=== PATIENT | male | born 1965 | race Caucasian/White ===

== ENCOUNTER 2017-10-19 12:56 | Emergency (ER) | payer MEDICAID ==
[2017-10-19] MEDS: MECLIZINE 12.5 MG TAB PO (13:31)
[2017-10-19 13:51] LABS: ADD MAN DIFF? NO
[2017-10-19 13:56] LABS: WHITE BLOOD COUNT 5.9 10^3/ul (4.8-10.8)
[2017-10-19 13:56] LABS: BASOPHILS % 0.3 % (0.0-2.0); EOSINOPHILS # 0.1 10^3/ul (0.0-0.5); EOSINOPHILS % 1.7 % (0.0-7.0); HEMATOCRIT 41.7 % (42.0-52.0); HEMOGLOBIN 13.6 g/dl (14.0-18.0); LYMPHOCYTES # 1.6 10^3/ul (0.8-2.9); LYMPHOCYTES % 27.4 % (15.0-51.0); MEAN CORPUSCULAR HEMOGLOBIN 28.3 pg (29.0-33.0); MEAN CORPUSCULAR HGB CONC 32.6 g/dl (32.0-37.0); MEAN CORPUSCULAR VOLUME 86.9 fl (82.0-101.0); MONOCYTE # 0.6 10^3/ul (0.3-0.9); MONOCYTES % 10.6 % (0.0-11.0); NEUTROPHIL # 3.5 10^3/ul (1.6-7.5); NEUTROPHILS % 59.7 % (39.0-77.0); PLATELET COUNT 240 10^3/UL (140-415); RED CELL DISTRIBUTION WIDTH 12.8 % (11.5-14.5)
[2017-10-19 14:13] LABS: CARBON DIOXIDE 31 mmol/L (21-31); CHLORIDE 105 mmol/L (97-110); SODIUM 144 mmol/L (135-144)
[2017-10-19 14:14] LABS: ALANINE AMINOTRANSFERASE 36 IU/L (13-69); ALBUMIN 4.2 g/dl (3.3-4.9); ALKALINE PHOSPHATASE 100 IU/L (42-121); ANION GAP 12 (8-16); ASPARTATE AMINO TRANSFERASE 25 IU/L (15-46); BILIRUBIN,INDIRECT 0.4 mg/dl (0-1.1); BILIRUBIN,TOTAL 0.4 mg/dl (0.2-1.3); BLOOD UREA NITROGEN 10 mg/dl (7-20); CALCIUM 9.8 mg/dl (8.4-10.2); CREATININE 0.67 mg/dl (0.61-1.24); GLUCOSE 128 mg/dl (70-220); TOTAL PROTEIN 7.7 g/dl (6.1-8.1)
== END 2017-10-19 15:02 | disposition home or self-care (01) ==
LOC: FTE 12:56
DX: R42 Dizziness and giddiness (principal); R51 Headache; Z79.82 Long term (current) use of aspirin
CPT/HCPCS: 36415; 70450; 80053; 85025; 99285-25

== ENCOUNTER 2018-05-24 13:16 | Inpatient (IN) | payer MEDICAID ==
[2018-05-24] MEDS: SOD CHLORIDE 0.9% 1,000 ML IV ×2 (17:12→22:37)
[2018-05-24 17:21] LABS: WHITE BLOOD COUNT 13.5 10^3/ul (4.8-10.8)
[2018-05-24 17:21] LABS: ABNORMAL IP MESSAGE 1; HEMATOCRIT 18.8 % (42.0-52.0); MEAN CORPUSCULAR HEMOGLOBIN 29.8 pg (29.0-33.0); MEAN CORPUSCULAR HGB CONC 32.4 g/dl (32.0-37.0); MEAN CORPUSCULAR VOLUME 91.7 fl (82.0-101.0); MEAN PLATELET VOLUME 9.9 fl (7.4-10.4); PLATELET COUNT 310 10^3/UL (140-415); POSITIVE DIFF @See below; RED BLOOD COUNT 2.05 10^6/ul (4.70-6.10); RED CELL DISTRIBUTION WIDTH 12.8 % (11.5-14.5)
[2018-05-24 17:24] LABS: ADD MAN DIFF? YES; ADD UMIC NO; HEMOGLOBIN 6.1 g/dl (14.0-18.0); UR ASCORBIC ACID NEGATIVE (NEGATIVE); UR BILIRUBIN (Dip) NEGATIVE (NEGATIVE); UR BLOOD (Dip) NEGATIVE (NEGATIVE); UR CLARITY CLEAR (CLEAR); UR COLOR YELLOW (YELLOW); UR GLUCOSE (Dip) 2+ mg/dL (NEGATIVE); UR KETONES (Dip) NEGATIVE (NEGATIVE); UR LEUKOCYTE ESTERASE (Dip) NEGATIVE Leu/ul (NEGATIVE); UR NITRITE (Dip) NEGATIVE (NEGATIVE); UR SPECIFIC GRAVITY (Dip) 1.023 (1.003-1.030); UR TOTAL PROTEIN (Dip) NEGATIVE (NEGATIVE); UR UROBILINOGEN (Dip) NEGATIVE (NEGATIVE)
[2018-05-24 17:25] LABS: PATH REVIEW? YES
[2018-05-24] MEDS: SOD CHLORIDE 0.9% 0 ML IV (17:38)
[2018-05-24 17:39] LABS: INR 0.89; PROTIME 12.2 Sec (11.9-14.9)
[2018-05-24 17:40] LABS: PARTIAL THROMBOPLASTIN TIME 28.7 Sec (23.0-35.0)
[2018-05-24 17:45] LABS: ALANINE AMINOTRANSFERASE 23 IU/L (13-69); ALBUMIN 3.5 g/dl (3.3-4.9); ALBUMIN/GLOBULIN RATIO 1.34; ALKALINE PHOSPHATASE 77 IU/L (42-121); ANION GAP 8 (5-13); ASPARTATE AMINO TRANSFERASE 25 IU/L (15-46); BLOOD UREA NITROGEN 16 mg/dl (7-20); CALCIUM 8.8 mg/dl (8.4-10.2); CARBON DIOXIDE 25 mmol/L (21-31); CHLORIDE 101 mmol/L (97-110); Estimated GFR > 60 mL/min (>60); GLUCOSE 184 mg/dl (70-220); LIPASE 90 U/L (23-300); SODIUM 134 mmol/L (135-144); TOTAL PROTEIN 6.1 g/dl (6.1-8.1)
[2018-05-24 18:17] LABS: ANISOCYTOSIS 1+ (0-0); BAND NEUTROPHILS #M 0.2 10^3/ul (0.0-0.6); BAND NEUTROPHILS % (M) 2 % (0-4); BASOPHIL #M 0.1 10^3/ul (0.0-0.0); BASOPHILS % (M) 1 % (0-2); EOSINOPHILS % (M) 1 % (0-7); ERYTHROBLAST% (NRBC) (M) 1 % (0-0); LYMPHOCYTES #M 2.7 10^3/ul (0.8-2.9); LYMPHOCYTES % (M) 20 % (15-51); MICROCYTOSIS 1+ (0-0); MONOCYTE #M 0.2 10^3/ul (0.3-0.9); MONOCYTES % (M) 2 % (0-11); PLATELET ESTIMATE NORMAL; POLYCHROMASIA 1+ (0-0); SEGMENTED NEUTROPHILS (M) % 74 % (39-77); SMUDGE%M 16 % (0-0)
[2018-05-24] MEDS ORDERED: ONDANSETRON 4 MG INJ IV (18:30)
[2018-05-24] MEDS ORDERED: ACETAMINOPHEN 325 MG TAB PO ×2 (18:30→19:00)
[2018-05-24] MEDS: PANTOPRAZOLE IV 80 MG in SOD CHLORIDE 0.9% 100 ML IV (18:38)
[2018-05-24] MEDS: PANTOPRAZOLE IV 80 MG in SOD CHLORIDE 0.9% 100 ML IVPB (18:38)
[2018-05-24] MEDS: SOD CHLORIDE 0.9% 100 ML (18:48)
[2018-05-24] MEDS: IOHEXOL 300MG/ML 150 ML BTL (18:48)
[2018-05-24] MEDS ORDERED: NACL 0.9% 3 ML SYG IV (19:00)
[2018-05-24] MEDS ORDERED: HYDROCODONE/APAP (5/325) TAB PO (19:00)
[2018-05-24 19:40] LABS: IRON 82 ug/dl (35-150)
[2018-05-24 19:49] LABS: % IRON SATURATION 24 % SAT (22-52); TOTAL IRON BINDING CAPACITY 342 ug/dl (241-421)
[2018-05-25] MEDS: NICOTINE (14 MG/24 HR) PATCH TRANSDERM ×2 (01:13→09:26)
[2018-05-25] MEDS: SOD CHLORIDE 0.9% 1,000 ML IV ×2 (04:58→08:24)
[2018-05-25 09:15] LABS: WHITE BLOOD COUNT 8.8 10^3/ul (4.8-10.8)
[2018-05-25 09:15] LABS: ABNORMAL IP MESSAGE 1; HEMATOCRIT 16.1 % (42.0-52.0); MEAN CORPUSCULAR HGB CONC 31.7 g/dl (32.0-37.0); MEAN CORPUSCULAR VOLUME 91.5 fl (82.0-101.0); MEAN PLATELET VOLUME 9.9 fl (7.4-10.4); NUCLEATED RED BLOOD CELLS% 0.8 /100WBC (0.0-0.0); PLATELET COUNT 237 10^3/UL (140-415); POSITIVE DIFF @See below; RED BLOOD COUNT 1.76 10^6/ul (4.70-6.10); RED CELL DISTRIBUTION WIDTH 13.8 % (11.5-14.5)
[2018-05-25 09:20] LABS: ADD MAN DIFF? YES; HEMOGLOBIN 5.1 g/dl (14.0-18.0); PATH REVIEW? YES
[2018-05-25 09:41] LABS: ALANINE AMINOTRANSFERASE 27 IU/L (13-69); ALBUMIN 2.5 g/dl (3.3-4.9); ALBUMIN/GLOBULIN RATIO 1.13; ALKALINE PHOSPHATASE 63 IU/L (42-121); ANION GAP 1 (5-13); ASPARTATE AMINO TRANSFERASE 21 IU/L (15-46); BLOOD UREA NITROGEN 13 mg/dl (7-20); CARBON DIOXIDE 26 mmol/L (21-31); CHLORIDE 109 mmol/L (97-110); CREATININE 0.62 mg/dl (0.61-1.24); Estimated GFR > 60 mL/min (>60); GLUCOSE 100 mg/dl (70-220); MAGNESIUM 2.1 mg/dl (1.7-2.5); PHOSPHORUS 2.4 mg/dl (2.5-4.9); POTASSIUM 4.1 mmol/L (3.5-5.1); SODIUM 136 mmol/L (135-144); TOTAL PROTEIN 4.7 g/dl (6.1-8.1)
[2018-05-25 09:57] LABS: ANISOCYTOSIS 2+ (0-0); BAND NEUTROPHILS #M 0.4 10^3/ul (0.0-0.6); BAND NEUTROPHILS % (M) 5 % (0-4); EOSINOPHILS % (M) 6 % (0-7); HYPOCHROMASIA 1+ (0-0); LYMPHOCYTES #M 1.7 10^3/ul (0.8-2.9); LYMPHOCYTES % (M) 20 % (15-51); MICROCYTOSIS 2+ (0-0); MONOCYTE #M 0.1 10^3/ul (0.3-0.9); MONOCYTES % (M) 2 % (0-11); PLATELET ESTIMATE NORMAL; POIKILOCYTOSIS 1+ (0-0); POLYCHROMASIA 2+ (0-0); SEG NEUT #M 5.9 10^3/ul (1.6-7.5); SEGMENTED NEUTROPHILS (M) % 67 % (39-77); SMUDGE%M 11 % (0-0)
[2018-05-25 13:47] LABS: IMMEDIATE SPIN CROSSMATCH 1 5
[2018-05-25] MEDS: BISACODYL (EC) 5 MG TAB PO (16:54)
[2018-05-25] MEDS: FUROSEMIDE 20 MG INJ IV (16:55)
[2018-05-25] MEDS: PANTOPRAZOLE IV 80 MG in SOD CHLORIDE 0.9% 100 ML IV (18:08)
[2018-05-25] MEDS: MAGNESIUM CITRATE 300 ML BTL PO (18:32)
[2018-05-25] MEDS: POLYETHYLENE GLYCOL 3350 119 GM POWDER PO (20:01)
[2018-05-26] MEDS: SOD CHLORIDE 0.9% 1,000 ML IV ×3 (00:58→12:10)
[2018-05-26] MEDS: PANTOPRAZOLE IV 80 MG in SOD CHLORIDE 0.9% 100 ML IV ×3 (03:20→23:30)
[2018-05-26] MEDS: POLYETHYLENE GLYCOL 3350 119 GM POWDER PO (05:17)
[2018-05-26 05:50] LABS: ADD MAN DIFF? NO
[2018-05-26 05:54] LABS: BASOPHIL # 0.1 10^3/ul (0.0-0.1); BASOPHILS % 0.5 % (0.0-2.0); EOSINOPHILS # 0.2 10^3/ul (0.0-0.5); EOSINOPHILS % 1.7 % (0.0-7.0); HEMATOCRIT 24.3 % (42.0-52.0); HEMOGLOBIN 7.8 g/dl (14.0-18.0); LYMPHOCYTES # 2.5 10^3/ul (0.8-2.9); LYMPHOCYTES % 25.2 % (15.0-51.0); MEAN CORPUSCULAR HEMOGLOBIN 29.3 pg (29.0-33.0); MEAN CORPUSCULAR HGB CONC 32.1 g/dl (32.0-37.0); MEAN CORPUSCULAR VOLUME 91.4 fl (82.0-101.0); MEAN PLATELET VOLUME 9.8 fl (7.4-10.4); MONOCYTE # 0.8 10^3/ul (0.3-0.9); MONOCYTES % 7.5 % (0.0-11.0); NEUTROPHIL # 6.3 10^3/ul (1.6-7.5); NEUTROPHILS % 63.2 % (39.0-77.0); NUCLEATED RED BLOOD CELLS # 0.2 10^3/ul (0.0-0.0); NUCLEATED RED BLOOD CELLS% 1.5 /100WBC (0.0-0.0); PLATELET COUNT 244 10^3/UL (140-415); RED BLOOD COUNT 2.66 10^6/ul (4.70-6.10); RED CELL DISTRIBUTION WIDTH 13.9 % (11.5-14.5)
[2018-05-26] MEDS: BISACODYL (EC) 5 MG TAB PO (08:11)
[2018-05-26] MEDS: NICOTINE (14 MG/24 HR) PATCH TRANSDERM (14:21)
[2018-05-26] MEDS ORDERED: EPHEDrine SULFATE 50 MG/5 ML SYG IV (17:00)
[2018-05-26] MEDS ORDERED: morphine (1 MG/ML) 10ML SYRINGE IV ×2 (17:00)
[2018-05-26] MEDS ORDERED: ONDANSETRON 4 MG INJ IV (17:00)
[2018-05-26] MEDS ORDERED: FENTAnyl 50 MCG/ML VIAL IV ×2 (17:00)
[2018-05-26] MEDS ORDERED: LABETALOL HCL 20MG INJ IV (17:00)
[2018-05-26] MEDS ORDERED: PROPOFOL 60 ML (17:05)
[2018-05-26] MEDS: SUCRALFATE 1 GM TAB PO ×2 (18:46→21:14)
[2018-05-27] MEDS: SOD CHLORIDE 0.9% 1,000 ML IV (01:22)
[2018-05-27] MEDS: PANTOPRAZOLE IV 80 MG in SOD CHLORIDE 0.9% 100 ML IV (03:48)
[2018-05-27 05:08] LABS: ADD MAN DIFF? NO
[2018-05-27 05:12] LABS: WHITE BLOOD COUNT 7.3 10^3/ul (4.8-10.8)
[2018-05-27 05:12] LABS: BASOPHILS % 0.4 % (0.0-2.0); EOSINOPHILS # 0.2 10^3/ul (0.0-0.5); EOSINOPHILS % 2.1 % (0.0-7.0); HEMATOCRIT 22.3 % (42.0-52.0); HEMOGLOBIN 7.2 g/dl (14.0-18.0); LYMPHOCYTES # 2.4 10^3/ul (0.8-2.9); LYMPHOCYTES % 32.8 % (15.0-51.0); MEAN CORPUSCULAR HEMOGLOBIN 29.8 pg (29.0-33.0); MEAN CORPUSCULAR HGB CONC 32.3 g/dl (32.0-37.0); MEAN CORPUSCULAR VOLUME 92.1 fl (82.0-101.0); MEAN PLATELET VOLUME 9.6 fl (7.4-10.4); MONOCYTE # 0.6 10^3/ul (0.3-0.9); MONOCYTES % 8.1 % (0.0-11.0); NEUTROPHILS % 55.6 % (39.0-77.0); NUCLEATED RED BLOOD CELLS% 0.6 /100WBC (0.0-0.0); PLATELET COUNT 245 10^3/UL (140-415); RED BLOOD COUNT 2.42 10^6/ul (4.70-6.10); RED CELL DISTRIBUTION WIDTH 14.7 % (11.5-14.5)
[2018-05-27] MEDS: SUCRALFATE 1 GM TAB PO ×2 (08:58→12:54)
[2018-05-27] MEDS: NICOTINE (14 MG/24 HR) PATCH TRANSDERM (08:59)
[2018-05-27] MEDS: PANTOPRAZOLE (EC) 40 MG TAB PO (11:08)
[2018-05-27] MEDS: SOD CHLORIDE 0.9% 250 ML IV* (12:45)
[2018-05-27] MEDS ORDERED: PANTOPRAZOLE (EC) 40 MG TAB PO ×2 (18:00)
== END 2018-05-27 16:55 | disposition home or self-care (01) | DRG 378 ==
LOC: FTE 13:16 → MS1 17:00
PROC: 0DB68ZX Excision of Stomach, Via Natural or Artificial Opening Endoscopic, Diagnostic (ICD-10-PCS; principal; 2018-05-26 16:32)
PROC: 0DJD8ZZ Inspection of Lower Intestinal Tract, Via Natural or Artificial Opening Endoscopic (ICD-10-PCS; 2018-05-26 16:32)
PROC: 30233N1 Transfusion of Nonautologous Red Blood Cells into Peripheral Vein, Percutaneous Approach (ICD-10-PCS; 2018-05-26 16:32)
DX: K25.4 Chronic or unspecified gastric ulcer with hemorrhage (principal); D62 Acute posthemorrhagic anemia; D64.9 Anemia, unspecified; F17.200 Nicotine dependence, unspecified, uncomplicated
CPT/HCPCS: 36415; 36430; 74177; 80053; 81003; 82728; 83036; 83540; 83690; 83735; 84100; 85025; 85610; 85730; 86850; 86900; 86901; 86920; 86945; 88305; 88312; 96360; 99285-25